=== PATIENT | female | born 1970 | race Caucasian/White ===

== ENCOUNTER 2020-12-29 11:10 | Outpatient (CLI) | payer BC, SELFPAY ==
--- NOTE | 2020-12-29 11:18 | XRR_ITS ---
PROCEDURE INFORMATION: Exam: XR Right Foot Exam date and time: 12/29/2020 11:18 AM Age: 50 years old Clinical indication: Pain; Foot; Bilateral; Additional info: Z79.899 - other half-way (current) drug therapy TECHNIQUE: Imaging protocol: XR Right foot. Views: 3 or more views. COMPARISON: No relevant prior studies available. FINDINGS: Bones/joints: No acute fracture. The joint spaces are relatively preserved. No irregular osseous erosions. Soft tissues: Normal. XR/XR foot RT min 3V* [id number] IMPRESSION: No acute findings. No significant degenerative changes or radiographic sequela of inflammatory arthropathy.
--- NOTE | 2020-12-29 11:18 | XRR_ITS ---
PROCEDURE INFORMATION: Exam: XR Right Hand Exam date and time: 12/29/2020 11:18 AM Age: 50 years old Clinical indication: Pain; Hand; Bilateral; Additional info: Z79.899 - other [facility] (current) drug therapy TECHNIQUE: Imaging protocol: XR Right hand. Views: 3 or more views. COMPARISON: No relevant prior studies available. FINDINGS: Bones/joints: No evidence of fracture. No significant joint space narrowing. No irregular osseous erosions. Soft tissues: Normal. XR/XR hand RT min 3V* [id number] IMPRESSION: No acute findings. No significant degenerative changes or radiographic sequela of inflammatory arthropathy.
--- NOTE | 2020-12-29 11:18 | XRR_ITS ---
PROCEDURE INFORMATION: Exam: XR Left Foot Exam date and time: 12/29/2020 11:18 AM Age: 50 years old Clinical indication: Pain; Foot; Bilateral; Additional info: Z79.899 - other nursing home (current) drug therapy TECHNIQUE: Imaging protocol: XR Left foot. Views: 3 or more views. COMPARISON: No relevant prior studies available. FINDINGS: Bones/joints: No acute fracture. [id number] degenerative narrowing of the 1st MTP. No irregular osseous erosions. Tiny calcaneal spur. Soft tissues: Normal. XR/XR foot LT min 3V* [id number] IMPRESSION: Degenerative changes of the 1st MTP. No acute findings. No evident radiographic sequela of inflammatory arthropathy.
--- NOTE | 2020-12-29 11:18 | XRR_ITS ---
PROCEDURE INFORMATION: Exam: XR Left Hand Exam date and time: 12/29/2020 11:18 AM Age: 50 years old Clinical indication: Pain; Hand; Bilateral; Additional info: Z79.899 - other group home (current) drug therapy TECHNIQUE: Imaging protocol: XR Left hand. Views: 3 or more views. COMPARISON: No relevant prior studies available. FINDINGS: Bones/joints: No evidence of fracture. No significant joint space narrowing. No irregular osseous erosions. Soft tissues: Normal. XR/XR hand LT min 3V* [id number] IMPRESSION: No acute findings. No significant degenerative changes or radiographic sequela of inflammatory arthropathy.
[2020-12-29 11:56] LABS: Basophils # 0.1 10^3/uL (0.0-0.1); Basophils % 0.6 %; Eosinophils # 0.3 10^3/uL (0.0-0.8); Eosinophils % 3.5 %; Hemoglobin 14.6 g/dL (11.5-15.3); Lymphocytes # 2.3 10^3/uL (0.8-4.8); Lymphocytes % 29.9 %; Mean Corpuscular HGB Conc 31.7 g/dL (30.0-36.0); Mean Corpuscular Hemoglobin 30.7 pg (28.0-34.0); Mean Corpuscular Volume 96.6 fl (81-99); Mean Platelet Volume 9.7 fL (7.4-10.4); Monocytes # 0.5 10^3/uL (0.2-0.9); Monocytes % 5.9 %; Neutrophils # 4.67 10^3/uL (1.8-7.7); Neutrophils % 59.8 %; Nucleated Red Blood Cells % 0 %; Platelet Count 228 10^3/cmm (130-400); Red Blood Count 4.76 10^6/uL (4.1-5.3); Red Cell Distribution Width 13.4 % (12.1-15.1); White Blood Count 7.8 10^3/uL (4.0-10.0)
== END 2020-12-29 11:11 | disposition home or self-care (01) ==
PROVIDERS: PCP Nurse Practitioner Family; Visit Provider Internal Medicine Rheumatology
DX: M19.90 Unspecified osteoarthritis, unspecified site (principal); Z79.899 Other long term (current) drug therapy; Z11.59 Encounter for screening for other viral diseases; Z11.1 Encounter for screening for respiratory tuberculosis; Z82.61 Family history of arthritis; Z71.89 Other specified counseling
CPT/HCPCS: 36415; 73130; 73630; 80076; 82306; 82565; 85025; 85651; 86140; 86431; 86480; 86704; 86803; 86812; 87340; 99204

== ENCOUNTER → 2021-02-09 14:39 | Outpatient (BNVA) | payer BC, SELFPAY | PROVIDERS: PCP Nurse Practitioner Family; Visit Provider Internal Medicine Rheumatology | DX: M06.00 Rheumatoid arthritis without rheumatoid factor, unspecified site (principal); M18.9 Osteoarthritis of first carpometacarpal joint, unspecified; Z79.899 Other long term (current) drug therapy; M77.11 Lateral epicondylitis, right elbow; M77.12 Lateral epicondylitis, left elbow; Z71.89 Other specified counseling; Z82.61 Family history of arthritis | CPT/HCPCS: 99214 ==

== ENCOUNTER 2021-10-01 14:14 | Outpatient (CLI) | payer BC, SELFPAY ==
[2021-10-01 14:44] LABS: Basophils # 0.1 10^3/uL (0.0-0.1); Basophils % 0.7 %; Eosinophils # 0.4 10^3/uL (0.0-0.8); Eosinophils % 4.9 %; Hematocrit 40.1 % (37.0-47.0); Hemoglobin 13.1 g/dL (11.5-15.3); Lymphocytes % 26.8 %; Mean Corpuscular HGB Conc 32.7 g/dL (30.0-36.0); Mean Corpuscular Hemoglobin 31.8 pg (28.0-34.0); Mean Corpuscular Volume 97.3 fl (81-99); Mean Platelet Volume 9.9 fL (7.4-10.4); Monocytes # 0.8 10^3/uL (0.2-0.9); Monocytes % 10.1 %; Neutrophils # 4.24 10^3/uL (1.8-7.7); Neutrophils % 57.1 %; Nucleated Red Blood Cells % 0 %; Platelet Count 276 10^3/cmm (130-400); Red Blood Count 4.12 10^6/uL (4.1-5.3); Red Cell Distribution Width 13.1 % (12.1-15.1); White Blood Count 7.4 10^3/uL (4.0-10.0)
[2021-10-01 15:07] LABS: Alanine Aminotransferase 18 U/L (0-33); Albumin Level 4.6 g/dL (3.5-5.2); Alkaline Phosphatase 69 IU/L (35-105); Aspartate Amino Transferase 27 U/L (0-32); C Reactive Protein 5.9 mg/L (0.0-4.9); Globulin 2.9 g/dL (1.3-4.6); Glomerular Filtration Rate 106.3 mL/min (90-130); Total Bilirubin 0.5 mg/dL (0.15-1.2); Total Protein 7.5 g/dL (6.6-8.7)
== END 2021-10-01 14:15 | disposition home or self-care (01) ==
PROVIDERS: PCP Nurse Practitioner Family; Visit Provider Internal Medicine Rheumatology
DX: M19.90 Unspecified osteoarthritis, unspecified site (principal); Z79.899 Other long term (current) drug therapy
CPT/HCPCS: 36415; 80076; 82565; 85025; 86140

== ENCOUNTER → 2022-08-16 12:50 | Outpatient (BNVA) | payer BC, SELFPAY | PROVIDERS: PCP Nurse Practitioner Family; Visit Provider Internal Medicine Rheumatology | DX: Z79.899 Other long term (current) drug therapy (principal); M06.041 Rheumatoid arthritis without rheumatoid factor, right hand; M06.042 Rheumatoid arthritis without rheumatoid factor, left hand; Z71.89 Other specified counseling; M18.0 Bilateral primary osteoarthritis of first carpometacarpal joints | CPT/HCPCS: 36415; 80076; 82565; 85025; 86140 ==

== ENCOUNTER → 2022-12-06 16:33 | Outpatient (BNVA) | payer BC, SELFPAY | PROVIDERS: PCP Nurse Practitioner Family; Visit Provider Internal Medicine Rheumatology | DX: M06.041 Rheumatoid arthritis without rheumatoid factor, right hand (principal); M06.042 Rheumatoid arthritis without rheumatoid factor, left hand; Z79.899 Other long term (current) drug therapy | CPT/HCPCS: 36415; 73562; 80076; 82565; 85025; 86140 ==

== ENCOUNTER → 2023-03-07 14:05 | Outpatient (BNVA) | payer BC, SELFPAY | PROVIDERS: PCP Nurse Practitioner Family; Visit Provider Internal Medicine Rheumatology | DX: M06.041 Rheumatoid arthritis without rheumatoid factor, right hand (principal); M06.042 Rheumatoid arthritis without rheumatoid factor, left hand; Z79.899 Other long term (current) drug therapy; M18.0 Bilateral primary osteoarthritis of first carpometacarpal joints; M17.0 Bilateral primary osteoarthritis of knee | CPT/HCPCS: 36415; 80076; 82565; 85025; 86140 ==

== ENCOUNTER → 2023-06-13 14:37 | Outpatient (BNVA) | payer MEDICAID, SELFPAY | PROVIDERS: PCP Nurse Practitioner Family; Visit Provider Internal Medicine Rheumatology | DX: M06.041 Rheumatoid arthritis without rheumatoid factor, right hand (principal); M06.042 Rheumatoid arthritis without rheumatoid factor, left hand; Z79.899 Other long term (current) drug therapy | CPT/HCPCS: 36415; 80076; 82565; 85025; 86140 ==

== ENCOUNTER 2023-09-21 15:25 | Outpatient (CLI) | payer MEDICAID, SELFPAY | END 2023-09-21 15:26 | disposition home or self-care (01) | LOC: LAB 15:27 | PROVIDERS: PCP Family Medicine; Visit Provider Internal Medicine Rheumatology | DX: M06.041 Rheumatoid arthritis without rheumatoid factor, right hand (principal); M06.042 Rheumatoid arthritis without rheumatoid factor, left hand; Z79.899 Other long term (current) drug therapy | CPT/HCPCS: 36415; 80076; 82565; 85025; 86140 ==

== ENCOUNTER 2023-12-30 13:49 | Outpatient (CLI) | payer MEDICAID, SELFPAY ==
[2023-12-30 14:19] LABS: Basophils # 0.1 10^3/uL (0.0-0.1); Basophils % 0.9 %; Eosinophils # 0.3 10^3/uL (0.0-0.8); Eosinophils % 5.1 %; Hematocrit 44.5 % (36-47); Lymphocytes # 2.4 10^3/uL (0.8-4.8); Lymphocytes % 35.7 %; Mean Corpuscular HGB Conc 33.5 g/dL (30-55); Mean Corpuscular Hemoglobin 31.1 pg (27-33); Mean Corpuscular Volume 92.9 fl (85-98); Mean Platelet Volume 9.7 fL (7.4-10.4); Monocytes # 0.5 10^3/uL (0.2-0.9); Monocytes % 6.9 %; Neutrophils # 3.42 10^3/uL (1.8-7.7); Neutrophils % 51.3 %; Nucleated Red Blood Cells % 0 %; Platelet Count 211 10^3/cmm (157-399); Red Blood Count 4.79 10^6/uL (3.85-5.65); Red Cell Distribution Width 12.7 % (12.1-15.1); White Blood Count 6.67 10^3/uL (3.29-11.43)
[2023-12-30 14:41] LABS: Alanine Aminotransferase 19 U/L (0-33); Albumin Level 4.3 g/dL (3.5-5.2); Alkaline Phosphatase 87 U/L (35-105); Aspartate Amino Transferase 18 U/L (0-32); Globulin 3.1 g/dL (1.3-4.6); Glomerular Filtration Rate 88.2 mL/min (90-130); Total Bilirubin 0.5 mg/dL (0.15-1.2); Total Protein 7.4 g/dL (6.6-8.7)
== END 2023-12-30 13:50 | disposition home or self-care (01) ==
LOC: LAB 13:51
PROVIDERS: PCP Family Medicine; Visit Provider Internal Medicine Rheumatology
DX: M06.041 Rheumatoid arthritis without rheumatoid factor, right hand (principal); M06.042 Rheumatoid arthritis without rheumatoid factor, left hand; Z79.899 Other long term (current) drug therapy
CPT/HCPCS: 36415; 80076; 82565; 85025; 86140

== ENCOUNTER 2024-05-31 08:39 | Outpatient (CLI) | payer MEDICAID, SELFPAY ==
--- NOTE | 2024-05-31 08:41 | US_ITS ---
WS: [id number] Complete ABDOMINAL ULTRASOUND HISTORY: right flank pain COMPARISON: None available. Liver: 16.2 cm in length. Normal size liver and echogenicity. No bile duct dilatation or mass. Hepati c granulomata are noted. Portal Vein: Normal hepatopetal flow with monophasic waveform. Gallbladder: Prior cholecystectomy. CBD: 0.6 cm Pancreas: Normal size and echogenicity. Right kidney: 10.0 cm x 5.0 x 5.6 cm. Cortex:1.1 cm. Normal size and echogenicity. No hydronephrosis or mass. Left kidney: 10.2 cm x 4.3 cm x 4.8 cm. Cortex: 1.1 cm. Normal size and echogenicity. No hydronephrosis or mass. Spleen: 10.1 cm. Normal size and echogenicity. Scattered granulomata. Aorta and IVC: Unremarkable abdominal aorta and IVC. US/US abdomen complete* [id number] Impression: 1. Prior cholecystectomy. 2. No intrahepatic duct dilatation. 3. Hepatic and splenic granulomata. 4. Negative kidneys.
== END 2024-05-31 08:40 | disposition home or self-care (01) ==
LOC: RAD 08:40
PROVIDERS: PCP Family Medicine; Visit Provider Family Medicine
DX: R10.9 Unspecified abdominal pain (principal); Z90.49 Acquired absence of other specified parts of digestive tract; K75.3 Granulomatous hepatitis, not elsewhere classified; D73.89 Other diseases of spleen
CPT/HCPCS: 76700

== ENCOUNTER → 2024-06-11 14:43 | Outpatient (BNVA) | payer MEDICAID, SELFPAY | PROVIDERS: PCP Family Medicine; Visit Provider Internal Medicine Rheumatology | DX: M06.041 Rheumatoid arthritis without rheumatoid factor, right hand (principal); M06.042 Rheumatoid arthritis without rheumatoid factor, left hand; Z79.899 Other long term (current) drug therapy | CPT/HCPCS: 36415; 80076; 82565; 85025; 85651; 86140 ==

== ENCOUNTER → 2024-09-17 14:58 | Outpatient (BNVA) | payer MEDICAID, SELFPAY | PROVIDERS: PCP Family Medicine; Visit Provider Internal Medicine Rheumatology | DX: Z79.899 Other long term (current) drug therapy (principal) | CPT/HCPCS: 36415; 80076; 82565; 85025; 85651; 86140 ==

== ENCOUNTER → 2024-12-07 10:00 | Outpatient (BNVA) | payer MEDICAID, SELFPAY | PROVIDERS: PCP Family Medicine; Visit Provider Physician Assistant | DX: M18.0 Bilateral primary osteoarthritis of first carpometacarpal joints (principal); M65.4 Radial styloid tenosynovitis [de Quervain]; M65.311 Trigger thumb, right thumb; M65.312 Trigger thumb, left thumb | CPT/HCPCS: 73130 ==

== ENCOUNTER → 2025-01-29 14:56 | Outpatient (BNVA) | payer MEDICAID, SELFPAY | PROVIDERS: PCP Family Medicine; Visit Provider Internal Medicine Rheumatology | DX: Z79.899 Other long term (current) drug therapy (principal) | CPT/HCPCS: 36415; 80076; 82306; 82565; 85025; 85651; 86140; 86480 ==

== ENCOUNTER → 2025-02-20 08:02 | Outpatient (BNVA) | payer MEDICAID, SELFPAY | PROVIDERS: PCP Family Medicine; Visit Provider Podiatrist Foot & Ankle Surgery | DX: M79.672 Pain in left foot (principal); G89.29 Other chronic pain; M19.072 Primary osteoarthritis, left ankle and foot; M20.22 Hallux rigidus, left foot | CPT/HCPCS: 73630 ==

== ENCOUNTER 2025-03-08 09:20 | Emergency (ER) | payer MEDICAID, SELFPAY ==
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
[2025-03-08 09:34] VITALS: BP 157/95; PULSE 99; RESP 18; TEMP 36.6; O2SAT 99; BMI 30.7
--- NOTE | 2025-03-08 09:37 | ED_ITS ---
HPI - Nausea/Vomiting/Diarrhea 2 General: Chief complaint: Nausea/Vomiting/Diarrhea Stated complaint: x4 N/V/D chills Time Seen by Provider: 03/08/25 09:32 Source: patient Mode of arrival: ambulatory Limitations: no limitations History of Present Illness: 54-year-old female states over the last 3 days she has been having nausea vomiting diarrhea. Patient states she has been having some chills as well. She states she has upper abdominal cramping at times with the vomiting. She denies any severe abdominal pain. Denies any known sick contacts. Associated nausea: Yes Associated symtoms: Reports nausea Related Data Home Medications ?Medication ?Instructions ?Recorded ?Confirmed cetirizine 10 mg tablet 10 mg PO DAILY PRN 12/18/20 02/20/25 dicyclomine 20 mg tablet 20 mg PO BID 12/18/20 fluticasone propionate 50 1 spray intranasal DAILY 10/0302/20/25 mcg/actuation nasal spray,suspension metoclopramide HCl 10 mg tablet 10 mg PO Q6H PRN 12/1802/20/25 montelukast 10 mg tablet 10 mg PO DAILY 12/18/2001/07 sucralfate 1 gram tablet 1 g PO BID 12/18/20 02/20/25 mirabegron [Myrbetriq] PO 02/09/21 02/20/25 Previous Rx's ?Medication ?Instructions ?Recorded tramadol 50 mg tablet 50 mg PO BID PRN pain (scale score 09/17/24 7-10) #60 tabs diclofenac sodium 75 mg See Rx Instructions .Route 0 01/29/25 tablet,delayed release .COMPLEX #30 tabs hydroxychloroquine 200 mg tablet See Rx Instructions . Route 01/29/25 .COMPLEX #135 tabs leflunomide 20 mg tablet 20 mg PO DAILY #90 tabs 01/14 11/07 prednisone 20 mg tablet See Rx Instructions .Route 0 01/29/25 .COMPLEX #30 tabs tofacitinib 5 mg tablet (Xeljanz) 5 mg PO BID #60 tabs 01/29/25 cephalexin 500 mg capsule 500 mg PO TID 7 days #21 cap s 03/08/25 ondansetron 4 mg disintegrating 4 mg PO Q6H PRN nausea and 03/08/25 tablet vomiting #14 tabs Allergies Allergy/AdvReac Type Severity Reaction Status Date / Time methotrexate Allergy Intermediate diarrhea, Verified 02/20/25 08:07 N/V, felt bad Tetracyclines Allergy Hives Verified 02/20/25 08:07 Review of Systems 2 GI: Reports: nausea, vomiting and diarrhea PFSH ED 2 PFSH: Medical History Osteoarthritis of knees, bilateral Osteoarthritis of carpometacarpal (CMC) joint of both thumbs Seronegative rheumatoid arthritis of both hands Immunization counseling High risk medication use Inflammatory arthritis Allergies Ulcerative colitis Joint pain Surgical History History of hysterectomy History of cholecystectomy Family History Other Cancer Diabetes Hyperlipidemia Denies family history of Rheumatoid arthritis Lupus CAD (coronary artery disease) Chronic kidney disease (CKD) Lung disease Hypertension Stroke Social History Smoking and tobacco/nicotine status: former use of tobacco/nicotine Alcohol intake: current Physical Exam 2 Const: COMMON NORMALS: no acute distress, patient oriented x3 and healthy appearing HENMT: COMMON NORMALS: normocephalic and atraumatic HEAD & SCALP: n ormocephalic and atraumatic Neck/C-Spine: COMMON NORMALS: full ROM and supple Chest: COMMONS NORMALS: normal inspection of the chest and normal palpation of entire chest wall Resp: COMMON NORMALS: normal respiratory effort, No retractions, No use of accessory muscles and clear to auscultation bilaterally AUSCULTATION: clear to auscultation bilaterally Cardio: COMMON NORMALS: regular rate, regular rhythm and No murmurs present (Cardio) RATE: regular rate RHYTHM: regular rhythm GI: COMMON NORMALS: Normal to inspection, nondistended, normoactive bowel sounds present, Soft to palpation, non-tender and no masses PALPATION: Yes Soft to palpation Extremity: COMMON NORMALS: normal to inspection and full ROM Neuro: COMMON NORMALS: patient oriented x3, moves all extremities and no focal motor deficits Psych: COMMON NORMALS: mental status grossly normal, Normal thought process present and cooperative THOUGHT PROCESS: Normal thought process present Skin: COMMON NORMALS: no rashes or lesions noted and no wounds GENERAL SKIN EXAM: no rashes or lesions noted Course 2 Vital Signs: Vital signs: Vital Signs Temperature 97.8 F 03/08/25 09:34 Pulse Rate 82 03/08/25 11:25 Respiratory Rate 16 03/08/25 11:25 Blood Pressure 177/89 03/08/25 11:25 Pulse Oximetry 98 03/08/25 11:25 Oxygen Delivery Me thod Room Air 03/08/25 09:34 MDM - Nausea/Vomiting/Diarrhea Medical Decision Making Patient presents here with nausea vomiting. Differential includes bowel obstruction along with gastroenteritis or food poisoning. Patient here has no signs of small bowel obstruction she has good bowel sounds on her exam her abdominal exam showed no tenderness here. She feels much improved here after nausea meds and has been able to tolerate p.o. White count electrolytes here are normal she does have a urinary tract infection will prescribe her Zofran along with Keflex I did go over her labs with her and the plan she understands and agrees to plan she is to return if worsening. Medical Records I reviewed the patient's medical records. Lab Data I reviewed the patient's lab results. 03/08/25 10:04 03/08/25 10:04 Laboratory Results WBC 9.36 10^3/uL (3.29-11.43) 03/08/25 10:04 RBC 5.45 10^6/uL (3.85-5.65) 03/08/25 10:04 Hgb 17.20 g/dL (11.27-16.99) H 03/08/25 10:04 Hct 50.7 % (36-47) H 03/08/25 10:04 MCV 93.0 fl (85-98) 03/08/25 10:04 MCH 31.6 pg (27-33) 03/08/25 10:04 MCHC 33.9 g/dL (30-55) 03/08/25 10:04 RDW 12.6 % (12.1-15.1) 03/08/25 10:04 Plt Count 240 10^3/cmm (157-399) 03/08/25 10:04 MPV 9.9 fL (7.4-10.4) 03/08/25 10:04 Neut % (Auto) 78.3 % 03/08/25 10:04 Lymph % (Auto) 13.2 % 03/08/25 10:04 Gladwin % (Auto) 7.5 % 03/08/25 10:04 Eos % (Auto) 0.2 % 03/08/25 10:04 Baso % (Auto) 0.4 % 03/08/25 10:04 Neut # (Auto) 7.32 10^3/uL (1.8-7.7) 03/08/25 10:04 Lymph # (Auto) 1.2 10^3/uL (0.8-4.8) 03/08/25 10:04 Gladwin # (Auto) 0.7 10^3/uL (0.2-0.9) 03/08/25 10:04 Eos # (Auto) 0.0 10^3/uL (0.0-0.8) 03/08/25 10:04 Baso # (Auto) 0.0 10^3/uL (0.0-0.1) 03/08/25 10:04 Nucleated RBC % (auto) 0 % 03/08/25 10:04 Nucleated RBCs # 0.0 /100WBC 03/08/25 10:04 Sodium 138 mmol/L (136-145) 03/08/25 10:04 Potassium 3.1 mmol/L (3.5-5.1) L 03/08/25 10:04 Chloride 97 mmol/L (98-107) L 03/08/25 10:04 Carbon Dioxide 24 mmol/L (22-29) 03/08/25 10:04 Anion Gap 20.1 (5-19) H 03/08/25 10:04 BUN 10 mg/dL (6-20) 03/08/25 10:04 Creatinine 0.6 mg/dL (0.5-0.9) 03/08/25 10:04 GFR Calculation 105.0 mL/min (90-130) 03/08/25 10:04 Glucose 111 mg/dL (65-115) 03/08/25 10:04 Calculated Osmolality 286 mOsm/kg (285-295) 03/08/25 10:04 Calcium 9.7 mg/dL (8.5-10.5) 03/08/25 10:04 Total Bilirubin 0.7 mg/dL (0.15-1.2) 03/08/25 10:04 AST 31 U/L (0-32) 03/08/25 10:04 ALT 28 U/L (0-33) 03/08/25 10:04 Alkaline Phosphatase 101 U/L (35-105) 03/08/25 10:04 Total Protein 8.2 g/dL (6.6-8.7) 03/08/25 10:04 Albumin 4.8 g/dL (3.5-5.2) 03/08/25 10:04 Globulin 3.4 g/dL (1.3-4.6) 03/08/25 10:04 Lipase 23 U/L (13-60) 03/08/25 10:04 Urine Color Yellow (Yellow) 03/08/25 10:58 Urine Appearance Clear (CLEAR) 03/08/25 10:58 Urine pH 7.0 (5-7) 03/08/25 10:58 Ur Specific Hermann 1.014 (1.005-1.030) 03/08/25 10:58 Urine Protein 1+ (Negative) A 03/08/25 10:58 Urine Glucose (UA) Negative (Normal) 03/08/25 10:58 Urine Ketones Negative (Negative) 03/08/25 10:58 Urine Blood Trace (Negative) A 03/08/25 10:58 Urine Nitrate Positive (Negative) A 03/08/25 10:58 Urine Bilirubin Negative (Negative) 03/08/25 10:58 Urine Urobilinogen 1.0 mg/dL (Negative) 03/08/25 10:58 Ur Leukocyte Esterase Negative (Negative) 03/08/25 10:58 Amorphous Sediment Not Reportable 03/08/25 10:58 Influenza A (PCR) Negative (Negative) 03/08/25 10:02 Influenza Type B (PCR) Negative (Negative) 03/08/25 10:02 RSV (PCR) Negative (Negative) 03/08/25 10:02 SARS-CoV-2 (PCR) Negative (Negative) 03/08/25 10:02 No radiology studies performed this visit Discharge Plan Discharge Patient Disposition: Home Clinical Impression: Vomiting, Acute cystitis Condition: Stable Prescriptions: New cephalexin 500 mg capsule 500 mg PO TID 7 Days Qty: 21 0RF ondansetron 4 mg tablet,disintegrating 4 mg PO Q6H PRN (Reason: nausea and vomiting) Qty: 14 0RF No Action cetirizine 10 mg tablet 10 mg PO DAILY PRN dicyclomine 20 mg tablet 20 mg PO BID fluticasone propionate 50 mcg/actuation spray,suspension 1 spray intranasal DAILY Rx Instructions: administer into each nostril metoclopramide HCl 10 mg tablet 10 mg PO Q6H PRN montelukast 10 mg tablet 10 mg PO DAILY sucralfate 1 gram tablet 1 g PO BID mirabegron [Myrbetriq] PO tramadol 50 mg tablet 50 mg PO BID PRN (Reason: pain (scale score 7-10)) Qty: 60 1RF diclofenac sodium 75 mg tablet,delayed release (DR/EC) See Rx Instructions .ROUTE .COMPLEX Qty: 30 1RF Dose Instruction: TAKE ONE TABLET BY MOUTH TWICE A DAY NEEDED FOR PAIN Rx Instructions: TAKE ONE TABLET BY MOUTH TWICE A DAY NEEDED FOR PAIN hydroxychloroquine 200 mg tablet See Rx Instructions .ROUTE .COMPLEX Qty: 135 1RF Dose Instruction: ALTERNATE TAKING ONE TABLET BY MOUTH AND TWO TABLETS THE FOLLOWING DAY Rx Instructions: ALTERNATE TAKING ONE TABLET BY MOUTH AND TWO TABLETS THE FOLLOWING DAY leflunomide 20 mg tablet 20 mg PO DAILY Qty: 90 1RF prednisone 20 mg tablet See Rx Instructions .ROUTE .COMPLEX Qty: 30 1RF Dose Instruction: TAKE ONE TABLET BY MOUTH EVERY DAY FOR THREE TO SEVEN DAYS NEEDED joint pain flare Rx Instructions: TAKE ONE TABLET BY MOUTH EVERY DAY FOR THREE TO SEVEN DAYS NEEDED joint pain flare Xeljanz 5 mg tablet 5 mg PO BID Qty: 60 5RF Discharge Orders: Discharge ED (Routine); Ordered 03/08/25 Ordered By: Keshawn Stoddard Referrals: Geronimo Thomas MD [Primary Care Provider, Family Practice] - 4-7 days Discharge Diet: Advance as tolerated Discharge Activity: Resume usual activity Patient Instructions: Urinary Tract Infection in Women (ED), Acute Nausea and Vomiting (ED) Print Language: Kinyarwanda Coding Level of Care Code ED 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
[2025-03-08] MEDS: diphenhydrAMINE 50 mg/mL SDV 1mL IVP (10:02)
[2025-03-08] MEDS: metoclopramide 5 mg/mL SDV 2 mL 10 MG IVP (10:09)
[2025-03-08 10:13] LABS: Hematocrit 50.7 % (36-47); Hemoglobin 17.20 g/dL (11.27-16.99); Mean Corpuscular HGB Conc 33.9 g/dL (30-55); Mean Corpuscular Hemoglobin 31.6 pg (27-33); Mean Corpuscular Volume 93.0 fl (85-98); Nucleated Red Blood Cells % 0 %; Platelet Count 240 10^3/cmm (157-399); Red Blood Count 5.45 10^6/uL (3.85-5.65); White Blood Count 9.36 10^3/uL (3.29-11.43)
[2025-03-08 10:34] LABS: Alanine Aminotransferase 28 U/L (0-33); Albumin Level 4.8 g/dL (3.5-5.2); Alkaline Phosphatase 101 U/L (35-105); Aspartate Amino Transferase 31 U/L (0-32); Blood Urea Nitrogen 10 mg/dL (6-20); Calcium 9.7 mg/dL (8.5-10.5); Carbon Dioxide 24 mmol/L (22-29); Chloride 97 mmol/L (98-107); Creatinine Clr Calc Pharmacy 104.8267; Globulin 3.4 g/dL (1.3-4.6); Glucose 111 mg/dL (65-115); Lipase 23 U/L (13-60); Osmolality Calculated 286 mOsm/kg (285-295); Sodium 138 mmol/L (136-145); Total Protein 8.2 g/dL (6.6-8.7)
[2025-03-08 10:37] LABS: Anion Gap 20.1 (5-19); Potassium 3.1 mmol/L (3.5-5.1)
[2025-03-08 10:50] LABS: Respiratory Syncytial Virus Ce NEGATIVE (Negative); SARS-CoV-2 PCR NEGATIVE (Negative)
[2025-03-08 11:08] LABS: Glucose Urine UA Negative (Normal); Nitrate Urine Positive (Negative); Specific Gravity, Urine 1.014 (1.005-1.030)
[2025-03-08 11:13] LABS: Add Urine Microscopic? YES
[2025-03-08] MEDS: cefTRIAXone 1,000 mg SDV 1000 MG IVP (11:19)
[2025-03-08 11:25] VITALS: BP 177/89; PULSE 82; RESP 16; O2SAT 98
[2025-03-08 13:00] VITALS: TEMP 37
== END 2025-03-08 11:26 | disposition home or self-care (01) ==
PROVIDERS: Physician Assistant; Emergency Provider Emergency Medicine; PCP Family Medicine
DX: R11.10 Vomiting, unspecified (principal); N30.00 Acute cystitis without hematuria; Z11.52 Encounter for screening for COVID-19; Z87.891 Personal history of nicotine dependence
CPT/HCPCS: 36415; 80053; 81001; 83690; 85025; 87077; 87086; 87186; 87637; 96374; 96375; 99284; J0696; J1200; J1885; J2765; J7030; J9999